=== PATIENT | male | born 1970 | race Caucasian/White ===

== ENCOUNTER 2017-10-26 13:03 | Emergency (ER) | payer OTHER ==
[2017-10-26] MEDS: HYDROCODONE/APAP (10/325) TAB PO (13:55)
== END 2017-10-26 15:03 | disposition home or self-care (01) ==
LOC: FTE 13:03
DX: L03.113 Cellulitis of right upper limb (principal); R10.12 Left upper quadrant pain; F17.210 Nicotine dependence, cigarettes, uncomplicated
CPT/HCPCS: 99284; Z7502

== ENCOUNTER 2017-10-27 13:15 | Emergency (ER) | payer OTHER | END 2017-10-27 13:46 | disposition home or self-care (01) | LOC: E/R 13:15 | DX: L03.113 Cellulitis of right upper limb (principal); Z87.891 Personal history of nicotine dependence | CPT/HCPCS: 99283; Z7502 ==